=== PATIENT | male | born 1935 | race Caucasian/White ===

== ENCOUNTER 2020-02-08 14:50 | Emergency (ER) | payer BC, OTHER ==
[~2020-02-08 14:50] MED LIST: ALBUTEROL1.25 MG/3 INH; AQUAPHOR396 GM TOP; ARICEPT10 MG PO; BUSPAR 10MG10 MG PO; COENZYME Q1030 MG PO; COLACE CLEAR50 MG PO; DILANTIN100 MG PO; FLONASE 0.05% N16 GM; KENALOG CREAM 015 GM TOP; LASIX20 MG PO; MUCINEX600 MG PO; NEURONTIN 300300 MG PO; NORVASC10 MG PO; OMEPRAZOLE20 MG PO; OMNICEF 300 MG300 MG PO; SODIUM CHLORIDE 0.65%; SPIRIVA18 MCG INH; SYMBICORT 160-1 INHA INH; SYNTHROID 50 M50 MCG PO; TOPROL XL200 MG PO; VENTOLIN HFA 66.7 GM INH; VIBRAMYCIN100 MG PO; VITAMIN B-121000 MCG PO; VITAMIN D31000 UNI1 PO; XARELTO 15 MG T15 MG PO; ZESTRIL40 MG PO; ZYRTEC10 M3 PO
== END 2020-02-08 15:15 | disposition left against medical advice (07) ==
LOC: ER1 14:50
DX: R10.9 Unspecified abdominal pain (principal); Z53.21 Procedure and treatment not carried out due to patient leaving prior to being seen by health care provider

== ENCOUNTER 2020-04-04 17:33 | Emergency (ER) | payer BC, OTHER ==
[2020-04-04 18:52] LABS: HEMOGLOBIN 11.6 gm/dl (14.0-17.5); RED BLOOD COUNT 3.68 M/UL (4.20-5.50); WHITE BLOOD COUNT 11.1 K/UL (4.5-11.0)
[2020-04-04 19:14] LABS: BUN/CREATININE RATIO 18 (0-10)
[2020-04-04] MEDS ORDERED: LASIX 40 MG TAB40 MG PO (19:30)
== END 2020-04-04 19:51 | disposition home or self-care (01) ==
LOC: ER1 17:33
PROVIDERS: Internal Medicine
DX: I11.0 Hypertensive heart disease with heart failure (principal); I50.9 Heart failure, unspecified; J44.9 Chronic obstructive pulmonary disease, unspecified; Z95.1 Presence of aortocoronary bypass graft; Z90.49 Acquired absence of other specified parts of digestive tract
CPT/HCPCS: 36415; 36600; 71045; 80053; 82550; 82553; 82803; 83880; 84484; 85025; 93005; 94640; 94664; 96374; 96375; 99285; J1940; J2930

== ENCOUNTER 2020-05-02 10:20 | Emergency (ER) | payer BC, OTHER ==
[~2020-05-02 10:20] MED LIST changes: +LASIX 40 MG TAB40 MG PO
== END 2020-05-02 14:30 | disposition home or self-care (01) ==
LOC: ER1 10:20
DX: S82.61XA Displaced fracture of lateral malleolus of right fibula, initial encounter for closed fracture (principal); S61.412A Laceration without foreign body of left hand, initial encounter; S09.90XA Unspecified injury of head, initial encounter; W01.10XA Fall on same level from slipping, tripping and stumbling with subsequent striking against unspecified object, initial encounter; Y92.009 Unspecified place in unspecified non-institutional (private) residence as the place of occurrence of the external cause
CPT/HCPCS: 70450; 72125; 73090; 73130; 73610; 90471; 90715; 93005; 99284

== ENCOUNTER 2020-07-06 15:24 | Emergency (ER) | payer BC, OTHER ==
[2020-07-06 16:53] LABS: HEMOGLOBIN 10.4 gm/dl (14.0-17.5); RED BLOOD COUNT 3.38 M/UL (4.20-5.50); WHITE BLOOD COUNT 8.2 K/UL (4.5-11.0)
[2020-07-06 17:23] LABS: BUN/CREATININE RATIO 23 (0-10)
[2020-07-06] MEDS ORDERED: LASIX40 MG PO (17:52)
[2020-07-06] MEDS ORDERED: K-DUR TAB 20 M20 MEQ PO (17:53)
== END 2020-07-06 18:29 | disposition home or self-care (01) ==
LOC: ER1 15:24
PROVIDERS: Emergency Medicine
DX: I50.9 Heart failure, unspecified (principal); J44.9 Chronic obstructive pulmonary disease, unspecified; R60.0 Localized edema
CPT/HCPCS: 71045; 80053; 82550; 82553; 83874; 84484; 85025; 93005; 96374; 99284; J1940

== ENCOUNTER 2021-01-04 22:04 | Inpatient (IN) | payer BC, OTHER ==
[~2021-01-04] VITALS: Ht 182.9 cm; Wt 108.4 kg
[~2021-01-04 22:04] MED LIST changes: -BUSPAR 10MG10 MG PO; +BUSPIRONE HCL15 MG PO; +K-DUR TAB 20 M20 MEQ PO; +LASIX40 MG PO; +TOPROL XL100 MG PO; -TOPROL XL200 MG PO
[2021-01-04 22:27] LABS: RED BLOOD COUNT 3.62 M/UL (4.20-5.50); WHITE BLOOD COUNT 9.6 K/UL (4.5-11.0)
[2021-01-04 22:56] LABS: BUN/CREATININE RATIO 18 (0-10)
[2021-01-05] MEDS ORDERED: PROSCAR 5 MG TAB5 MG PO (04:29)
[2021-01-05] MEDS ORDERED: [UNRECOGNIZED DRUG - OTHER] TP (04:36)
[2021-01-05] MEDS ORDERED: MELATONIN3 M3 PO (04:38)
[2021-01-05] MEDS ORDERED: ZAROXOLYN/DIUL2.5 MG PO (04:42)
[2021-01-05] MEDS ORDERED: DULCOLAX5 MG PO (04:46)
[2021-01-05] MEDS ORDERED: LOTRIMIN CREAM15 GM TP (04:48)
[2021-01-05] MEDS ORDERED: DEPAKOTE ER250 MG PO (04:49)
[2021-01-05] MEDS ORDERED: ATIVAN0.5 MG PO (04:50)
[2021-01-05] MEDS ORDERED: NITROSTAT 0.40.4 MG SL (04:53)
--- NOTE | 2021-01-05 05:17 | NUR ---
PATIENT ANXIOUS AND CALLING OUT FOR HIS . PROVIDER NOTIFIED, CAME TO THE FLOOR TO SEE PATIENT AND PLAVED ORDERS FOR HALDOL IM.
--- NOTE | 2021-01-05 22:27 | NUR ---
called report to PCU for patient transfer per Dr Vickers.
--- NOTE | 2021-01-05 22:28 | NUR ---
2200 transfered patient to U [id number], patient wore non rebreather dfor transfer
[2021-01-06 03:11] LABS: HEMOGLOBIN 11.5 gm/dl (14.0-17.5); RED BLOOD COUNT 3.8 M/UL (4.20-5.50); WHITE BLOOD COUNT 9.2 K/UL (4.5-11.0)
[2021-01-06 03:32] LABS: BUN/CREATININE RATIO 21 (0-10)
--- NOTE | 2021-01-06 22:45 | NUR ---
PT PICKED UP BY [facility]. PT WAS STABLE WITH VITALS FOLLOWS: BLOOD PRESSURE 110/54, PULSE 75 ON MONITOR, RESPIRATIONS 20, OXYGEN SATURATION 95% ON 2L NC, AND TEMPERATURE 97.9 TYMPORAL. PT HAD NO COMPLAINTS HE WAS LEAVING, WAS STILL DISORIENTED TO TIME AND PLACE. PT IV WAS PATENT, HE WAS MOVED ONTO THE STRETCHER WITH NO ISSUES. 225 ML EMPTIED FROM [place] PRIOR TO TRANSFER, RED AND APPEARED LYNDSAY BLOOD. CALLED [facility] TO ALERT THE RECIEVING NURSE AND GAVE A QUICK UPDATE. ALERTED DAUGHTER, DASIA, THAT PT HAD LEFT THE FACILITY.
[2021-01-07 02:45] LABS: HEMOGLOBIN 12.3 gm/dl (14.0-17.5); RED BLOOD COUNT 4.06 M/UL (4.20-5.50); WHITE BLOOD COUNT 9.6 K/UL (4.5-11.0)
[2021-01-07 03:09] LABS: BUN/CREATININE RATIO 28 (0-10)
[2021-01-07] MEDS ORDERED: GABAPENTIN600 MG PO (10:03)
[2021-01-07] MEDS ORDERED: SPIRIVA RESPIMAT4 GM INH (10:11)
[2021-01-07] MEDS ORDERED: WIXELA 250-501 EACH INH (10:12)
--- NOTE | 2021-01-07 11:37 | NUR ---
PT FROM PCU IN STABLE CONDITION AND PLACED IN COVID ROOM WITH PRECAUTIONS AND BED ALARM AND FALL PRECAUTIONS IN PLACE
[2021-01-08 07:28] LABS: HEMOGLOBIN 12.4 gm/dl (14.0-17.5); RED BLOOD COUNT 4.15 M/UL (4.20-5.50); WHITE BLOOD COUNT 9.4 K/UL (4.5-11.0)
[2021-01-08 07:49] LABS: BUN/CREATININE RATIO 33 (0-10)
[2021-01-09 07:17] LABS: HEMOGLOBIN 11.9 gm/dl (14.0-17.5); RED BLOOD COUNT 3.92 M/UL (4.20-5.50); WHITE BLOOD COUNT 9.5 K/UL (4.5-11.0)
[2021-01-09 07:40] LABS: BUN/CREATININE RATIO 34 (0-10)
[2021-01-10 07:10] LABS: BUN/CREATININE RATIO 29 (0-10)
[2021-01-11 07:57] LABS: BUN/CREATININE RATIO 31 (0-10)
[2021-01-13 07:25] LABS: BUN/CREATININE RATIO 31 (0-10)
[2021-01-14 07:46] LABS: HEMOGLOBIN 13.4 gm/dl (14.0-17.5); RED BLOOD COUNT 4.55 M/UL (4.20-5.50); WHITE BLOOD COUNT 11.6 K/UL (4.5-11.0)
--- NOTE | 2021-01-14 07:54 | NUR ---
PATIENT HAS HEART RATE IN 140'S WITH BP OF 104/84 CALLED [employer] AND HE ASKED IF CARDIOLOGY WAS ON THE CASE. I SAID THEY WERE, HE SAID LET THEM HANDLE IT. DR. HEART CALLED SHE ORDERED IVP DIGOXIN 0.25MG NOW AND REPEAT Q6 OF DIGOXIN 0.125 X 2 DOSES, WITH 50 PO LOWPRESSOR NOW. WILL CONTINUE TO MONITOR.
[2021-01-14 08:19] LABS: BUN/CREATININE RATIO 37 (0-10)
--- NOTE | 2021-01-14 20:02 | NUR ---
Dialysis nurse notified me at this time. Informed patient was hooked up to receive peritoneal dialysis tonight. Stated a Dialysis nurse would be here at approximatley 8am on 01/15/21 to unhook patient. Cap placed in room, instructions for patient how to unhook if patient needed to leave room for surgery prior to dialysis nurse arriving in am.
--- NOTE | 2021-01-15 10:04 | NUR ---
PATIENT NOTED TO BE LETHARGIC AND REQUIRING BIPAP FOR O2 SUPPORT CONTINUOUSLY. PROVIDER MADE AWARE AND GAVE ORDERS FOR ABG AND PULMONARY CONSULT.
[2021-01-16 07:43] LABS: RED BLOOD COUNT 4.32 M/UL (4.20-5.50); WHITE BLOOD COUNT 11.1 K/UL (4.5-11.0)
[2021-01-16 09:29] LABS: BUN/CREATININE RATIO 46 (0-10)
--- NOTE | 2021-01-16 13:49 | NUR ---
REPORT CALLED TO KATHY DC IN ICU.
--- NOTE | 2021-01-17 04:07 | NUR ---
PT NOTED TO HAVE DIFFICULTY OPENING RIGHT EYE.
[2021-01-17 07:33] LABS: HEMOGLOBIN 14.1 gm/dl (14.0-17.5); RED BLOOD COUNT 4.66 M/UL (4.20-5.50); WHITE BLOOD COUNT 11.9 K/UL (4.5-11.0)
[2021-01-17 08:00] LABS: BUN/CREATININE RATIO 49 (0-10)
--- NOTE | 2021-01-18 02:57 | NUR ---
R/T JUANITA WATCH PER FISHING INSTRUCTOR: BEDSIDE TABLE MOVED TO BATHROOM, WINDOWS SECURED, BLINDS LOWERED, PT SECURED AND MADE AWARE. KIRA
--- NOTE | 2021-01-18 04:43 | NUR ---
PT DISCOVERED TO HAVE MOTTLING TO BILAT LOWER EXT. PT NEEDING SUPPLEMENTAL BIPAP AT 70% FiO2. REVIVAL CLERK NOTIFIED OF PATIENT CONDITION AND THAT PT IS DNR/DNI PER FAMILY. REVIVAL CLERK STATED THAT 2 FAMILY MEMBERS AT A TIME CAN VISIT WITH PT WITH NO LIMIT ON TOTAL OVERALL VISITORS. DAUGHTER GILDARDO ANNE NOTIFIED AT 9044 01/18/21 OF PT CONDITION AND THAT FAMILY MAY COME VISIT. DAUGHTER STATED SHE WOULD CALL THE REST OF THE FAMILY.
--- NOTE | 2021-01-18 05:20 | NUR ---
DR. BLANCO MADE AWARE OF PT CONDITION, THAT PT IS DNR, AND FAMILY WAS CALLED IN.
--- NOTE | 2021-01-19 16:30 | NUR ---
1610 CALLED AND SPOKE WITH MARNI BUTCHER AT [facility] PT WAS RULED OUT FOR DONATION
--- NOTE | 2021-01-19 16:31 | NUR ---
1526 PT HAS NO HEART TONES ON AUSCULATION, NO CORNEAL REFLEXES AND RISE OR FALL OF THE CHEST. PT'S TELEMTRY SHOWED PEA THEN ASYSTOLE. , SON AND DAUGHTER WHERE PRESENT AT BEDSIDE. PT WAS PRONOUNCED BY MYSELF AND WALTER APODACA RN. TIME OF 152.
--- NOTE | 2021-01-19 17:13 | NUR ---
1710 SPOKE WITH DONNELL AT [facility]. TERRIE STATED THAT HE HAD ALREADY SPOKE WITH THE FAMILY AND HE WOULD BE UP TO GET THE PT
== END 2021-01-19 15:26 | disposition expired | DRG 871 ==
LOC: ER1 22:04 → CDU 01-05 02:00 → MED SURG 4 01-05 02:00 → M/S 01-05 02:00 → PROG CARE 01-05 22:00 → MED SURG 4 01-07 11:06 → CCU 01-16 14:29 → M/S 01-17 02:39
PROVIDERS: Emergency Medicine; Internal Medicine; Internal Medicine Infectious Disease; Nurse Practitioner; ADMIT Internal Medicine
PROC: XW033E5 Introduction of Remdesivir Anti-infective into Peripheral Vein, Percutaneous Approach, New Technology Group 5 (ICD-10-PCS; principal; 2021-01-05)
PROC: 3E0333Z Introduction of Anti-inflammatory into Peripheral Vein, Percutaneous Approach (ICD-10-PCS; 2021-01-05)
PROC: 5A09457 Assistance with Respiratory Ventilation, 24-96 Consecutive Hours, Continuous Positive Airway Pressure (ICD-10-PCS; 2021-01-05)
PROC: B24BZZZ Ultrasonography of Heart with Aorta (ICD-10-PCS; 2021-01-09)
PROC: 8E0ZXY6 Isolation (ICD-10-PCS; 2021-01-09)
PROC: 5A0945A Assistance with Respiratory Ventilation, 24-96 Consecutive Hours, High Flow/Velocity Cannula (ICD-10-PCS; 2021-01-16)
DX: A41.89 Other specified sepsis (principal); U07.1 COVID-19; Z66 Do not resuscitate; Z51.5 Encounter for palliative care; J12.82 Pneumonia due to coronavirus disease 2019; J80 Acute respiratory distress syndrome; I50.33 Acute on chronic diastolic (congestive) heart failure; J15.9 Unspecified bacterial pneumonia; G93.41 Metabolic encephalopathy; J98.11 Atelectasis; E87.1 Hypo-osmolality and hyponatremia; I48.20 Chronic atrial fibrillation, unspecified; G93.49 Other encephalopathy; L89.151 Pressure ulcer of sacral region, stage 1; R65.20 Severe sepsis without septic shock; E86.1 Hypovolemia; L89.896 Pressure-induced deep tissue damage of other site; D64.9 Anemia, unspecified; R31.9 Hematuria, unspecified; R74.01 Elevation of levels of liver transaminase levels; E66.9 Obesity, unspecified; E87.70 Fluid overload, unspecified; E78.5 Hyperlipidemia, unspecified; E03.9 Hypothyroidism, unspecified; I25.10 Atherosclerotic heart disease of native coronary artery without angina pectoris; I11.0 Hypertensive heart disease with heart failure; I35.0 Nonrheumatic aortic (valve) stenosis; I27.20 Pulmonary hypertension, unspecified; J43.9 Emphysema, unspecified; F03.90 Unspecified dementia, unspecified severity, without behavioral disturbance, psychotic disturbance, mood disturbance, and anxiety; R53.81 Other malaise; Z79.01 Long term (current) use of anticoagulants; Z99.81 Dependence on supplemental oxygen; Z68.36 Body mass index [BMI] 36.0-36.9, adult; Z79.82 Long term (current) use of aspirin; Z79.899 Other long term (current) drug therapy
CPT/HCPCS: ECHO; 36415; 36600; 51702; 71045; 80048; 80053; 81001; 82140; 82550; 82553; 82728; 82803; 83735; 83874; 83880; 84484; 85025; 85027; 85379; 85610; 85730; 86140; 87040; 93005; 93306; 94640; 94660; 94664; 94760; 96374; 96375; 99285; J0360; J0456; J0696; J1100; J1160; J1630; J1940; J2060; J2270; J2543; J7030; Q9967; U0002